=== PATIENT | female | born 1990 | race Caucasian/White ===

== ENCOUNTER 2023-10-15 06:50 | Day surgery (SDC) | payer MEDICAID ==
[~2023-10-15 06:50] MED LIST: Sodium Chloride 0.9% 10 ML Syringe FLUSH PRN; Sodium Chloride 0.9% 10 ML Syringe FLUSH SCH
[2023-10-15] MEDS ORDERED: Lidocaine 2% 5 ML SDV ONE (07:15)
[2023-10-15] MEDS ORDERED: Dexamethasone 4 MG/ML 5 ML MDV ONE (07:15)
[2023-10-15] MEDS ORDERED: Ketorolac 30 MG/ML SDV ONE (07:15)
[2023-10-15] MEDS ORDERED: fentaNYL 250 MCG/5 ML SDV ONE (07:15)
[2023-10-15] MEDS ORDERED: Ondansetron 4 MG/2 ML SDV ONE (07:15)
[2023-10-15] MEDS ORDERED: Propofol 200 MG/20 ML SDV ONE (07:15)
[2023-10-15] MEDS ORDERED: Rocuronium 50 MG/5 ML Vial ONE ×2 (07:15→08:39)
[2023-10-15] MEDS ORDERED: Midazolam 1 MG/ML 2 ML SDV ONE (07:15)
[2023-10-15] MEDS: Acetaminophen 325 MG Tab PO SCH (07:20)
[2023-10-15] MEDS: Celecoxib 100 MG Cap PO SCH (07:26)
[2023-10-15] MEDS: Phenazopyridine 95 MG Tab PO SCH (07:27)
[2023-10-15 07:30] LABS: BASOPHILS PERCENT AUTO 0.3 % (0.0-1.0); EOSINOPHILS ABSOLUTE AUTO 0.2 K/mm3 (0.0-0.4); EOSINOPHILS PERCENT AUTO 2.6 % (0.0-6.0); HEMATOCRIT 40.7 % (37.0-47.0); HEMOGLOBIN 13.7 gm/dl (12.0-16.0); IMMATURE GRAN ABSOLUTE AUTO 0.02 K/mm3 (0.00-0.05); IMMATURE GRAN PERCENT AUTO 0.3 % (0.0-0.4); LYMPHOCYTES ABSOLUTE AUTO 1.7 K/mm3 (1.0-4.8); MEAN CORPUSCULAR HEMOGLOBIN 30.8 pg (28.0-32.0); MEAN CORPUSCULAR HGB CONC 33.7 g/dl (32.0-36.0); MEAN CORPUSCULAR VOLUME 91.5 fl (83.0-99.0); MEAN PLATELET VOLUME 10.5 fl (9.4-12.3); MONOCYTES ABSOLUTE AUTO 0.7 K/mm3 (0.0-0.8); MONOCYTES PERCENT AUTO 9.8 % (0.0-8.0); NEUTROPHILS ABSOLUTE AUTO 4.4 K/mm3 (1.8-7.7); PLATELET COUNT,PLT 279 K/mm3 (150-400); RED BLOOD CELL COUNT 4.45 M/mm3 (4.10-5.30); WHITE BLOOD CELL COUNT,WBC 6.93 K/mm3 (3.9-11.3)
[2023-10-15] MEDS: Lactated Ringers 1,000 ML IV SCH (07:38)
[2023-10-15] MEDS ORDERED: ceFAZolin 2 GM Vial ONE (07:44)
[2023-10-15] MEDS ORDERED: dexmedeTOMIDine HCl 200 MCG/2 ML SDV ONE ×2 (07:48→07:49)
[2023-10-15] MEDS ORDERED: Sodium Chloride 0.9% 100 ML ONE (07:49)
[2023-10-15] MEDS: EPINEPHrine 1 MG/ML SDV ONE (08:02)
[2023-10-15] MEDS: Lidocaine 1% 10 ML MDV ONE (08:02)
[2023-10-15] MEDS ORDERED: Ondansetron 4 MG/2 ML SDV IVPUSH PRN (08:07)
[2023-10-15] MEDS ORDERED: Sugammadex Sodium 200 MG/2 ML VIAL IV ONE ×2 (08:47→08:57)
[2023-10-15] MEDS: HYDROmorphone 0.5 MG/0.5 ML Syringe IVPUSH PRN (09:16)
[2023-10-15] MEDS: fentaNYL 100 MCG/2 ML SDV IVPUSH PRN (09:42)
[2023-10-15] MEDS ORDERED: oxyCODONE 5 MG Tab PO PRN (10:55)
[2023-10-15 13:12] LABS: ANION GAP 14.1 (5-15); BUN/CREATININE RATIO 13.8 (14-18); CALCIUM 8.7 mg/dL (8.5-10.1); CREATININE 0.8 mg/dL (0.55-1.02); EST CRCL DRUG DOSING (CG) 96.1 mL/min; POTASSIUM,K 4.1 mEq/L (3.5-5.1)
== END 2023-10-15 12:50 | disposition home or self-care (01) ==
LOC: JD.SDS 06:50
PROVIDERS: ATTEND Obstetrics & Gynecology
DX: D06.9 Carcinoma in situ of cervix, unspecified (principal); N73.6 Female pelvic peritoneal adhesions (postinfective); F32.A Depression, unspecified; F41.9 Anxiety disorder, unspecified; Z87.891 Personal history of nicotine dependence; Z79.899 Other long term (current) drug therapy
CPT/HCPCS: 36415; 52000; 58260; 80048; 85025; 86850; 86900; 86901; A9270; J0171; J0690; J1100; J1170; J1885; J2250; J2405; J2704; J3010; J3490; J7120; 00944